=== PATIENT | female | born 2000 | race African-American/Black ===

== ENCOUNTER 2021-09-21 14:05 | Emergency (ER) | payer OTHER ==
[~2021-09-21] VITALS: Ht 172.7 cm; Wt 85.0 kg
[2021-09-21 14:20] VITALS: BP 137/98
[2021-09-21 14:45] VITALS: BP 128/89
[2021-09-21 14:49] LABS: URINE BILIRUBIN - DIPSTICK NEGATIVE (NEGATIVE); URINE BLOOD DIPSTICK LARGE (NEGATIVE); URINE COLOR YELLOW; URINE GLUCOSE - DIPSTICK NEGATIVE (NEGATIVE); URINE KETONE NEGATIVE (NEGATIVE); URINE PH 5.5 (4.5-8.0); URINE PROTEIN - DIPSTICK 100 mg/dL (NEG-TRACE); URINE SPECIFIC GRAVITY >=1.030; URINE UROBILINOGEN - DIPSTICK 0.2 E.U./dL (0.2)
[2021-09-21 14:50] LABS: URINE BACTERIA MANY hpf; URINE LEUK ESTERASE SMALL (NEGATIVE); URINE NITRITE - DIPSTICK POSITIVE (Negative); URINE RBC 25-50 RBC/hpf (0-5); URINE SQUAMOUS EPITHELIAL CELL FEW EPI/hpf (0-FEW); URINE WBC 20-50 WBC/hpf (0-5)
[2021-09-21 14:52] LABS: HEMATOCRIT 36.4 % (37.0-47.0); MEAN CELL VOLUME 88.8 fL CALC (80.0-100.0); MEAN CORPUSCULAR HGB 29.3 pG CALC (26.0-32.0); NEUT# 3.7 thou/uL (2.00-7.15); RED BLOOD COUNT 4.1 mill/uL (4.20-5.60); RED CELL DISTRI WIDTH 14.4 % (11.5-15.5)
[2021-09-21 15:00] VITALS: BP 127/91
[2021-09-21 15:09] LABS: ALBUMIN 4.5 g/dL (3.2-5.0); ALKALINE PHOSPHATASE 47 u/l (38-126); ANION GAP 13 (6-22 (CALC)); BILIRUBIN, TOTAL 0.4 mg/dL (0.0-1.4); BUN 14 mg/dL (7-17); BUN/CREATININE RATIO 13 (12-20 (CALC)); CARBON DIOXIDE 23 mmol/l (22-30); CHLORIDE 108 mmol/l (95-108); CREATININE 1.1 mg/dL (0.5-1.0); GFR > 60 ML/MIN (>=60 (CALC)); GFR FOR AFR.AMER. > 60 ML/MIN (>=60 (CALC)); POTASSIUM 3.9 mmol/l (3.5-5.1); SGOT/AST 27 u/l (14-36); SODIUM 141 mmol/l (137-146); TOTAL PROTEIN 7.7 g/dL (6.3-8.2)
[2021-09-21 15:15] VITALS: BP 118/83
[2021-09-21 15:30] VITALS: BP 131/76
[2021-09-21] MEDS ORDERED: OMNI-PAC300 MG PO (15:37)
== END 2021-09-21 15:56 | disposition home or self-care (01) | DRG 690 ==
LOC: ED 14:05
PROVIDERS: Family Medicine
DX: N39.0 Urinary tract infection, site not specified (principal); B96.20 Unspecified Escherichia coli [E. coli] as the cause of diseases classified elsewhere

== ENCOUNTER 2023-12-09 10:39 | Emergency (ER) | payer OTHER ==
[2023-12-09] VITALS (22 sets, daily range): BP systolic 120–164; BP diastolic 77–110
[~2023-12-09] VITALS: Ht 172.7 cm; Wt 132.0 kg
[~2023-12-09 10:39] MED LIST: OMNI-PAC300 MG PO
[2023-12-09] MEDS ORDERED: MOUNJARO12.5 MG SC (11:02)
[2023-12-09] MEDS ORDERED: KETOROLAC TROMETHAMINE 30 MG/ML SDV IV ONE (11:10)
[2023-12-09] MEDS ORDERED: SODIUM CHLORIDE 0.9% 1,000 ML IV ONE (11:10)
[2023-12-09] MEDS ORDERED: ONDANSETRON HCl 4 MG/2 ML SDV IV ONE (11:10)
[2023-12-09 11:48] LABS: URINE BILIRUBIN - DIPSTICK Negative (NEGATIVE); URINE BLOOD DIPSTICK Negative (NEGATIVE); URINE COLOR Yellow; URINE GLUCOSE - DIPSTICK Negative (NEGATIVE); URINE KETONE Negative (NEGATIVE); URINE LEUK ESTERASE Negative (NEGATIVE); URINE NITRITE - DIPSTICK Negative (Negative); URINE PH 5.5 (4.5-8.0); URINE PROTEIN - DIPSTICK Negative (NEG-TRACE); URINE SPECIFIC GRAVITY 1.025
[2023-12-09 12:33] LABS: BASO% 0.3 % (0-3); HEMATOCRIT 35.5 % (37.0-47.0); HEMOGLOBIN 11.7 g/dl (12.0-16.0); IMMATURE GRANULOCYTES 0.3 % (0.0-5.0); LYMPH% 48.9 % (15-41); MEAN CELL VOLUME 86.8 fL CALC (80.0-100.0); MEAN CORPUSCULAR HGB 28.6 pG CALC (26.0-32.0); MONO% 9.9 % (2-13); NEUT# 1.44 thou/uL (2.00-7.15); NEUT% 40.6 % (42-76); RED BLOOD COUNT 4.09 mill/uL (4.20-5.60); RED CELL DISTRI WIDTH 15.1 % (11.5-15.5)
[2023-12-09 12:49] LABS: ALBUMIN 4.4 g/dL (3.2-5.0); BILIRUBIN, TOTAL 0.5 mg/dL (0.02-1.3); CREATININE 0.9 mg/dL (0.5-1.0); POTASSIUM 4.4 mmol/l (3.5-5.1); TOTAL PROTEIN 7.4 g/dL (6.3-8.2)
[2023-12-09] MEDS ORDERED: ZOFRAN4 MG/TAB PO (14:46)
[2023-12-09] MEDS ORDERED: TRAMADOL HYDROC50 M1 PO (14:46)
[2023-12-09] MEDS ORDERED: NAPROXEN500 MG PO (14:46)
[2023-12-09] MEDS ORDERED: MORPHINE SULFATE 4 MG/ML VIAL IV ONE (15:05)
[2023-12-09] MEDS ORDERED: DiphenhydrAMINE HCL 50 MG/ML SDV IV ONE (15:25)
[2023-12-09] MEDS ORDERED: methylPREDNISolone SODIUM SUCC 125 MG/2 ML SDV IV ONE (15:25)
[2023-12-09] MEDS ORDERED: EPINEPHrine HCL 1 MG/ML AMP IM ONE (15:25)
[2023-12-09] MEDS ORDERED: FAMOTIDINE 10MG/ML 2ML SDV IV ONE (15:25)
== END 2023-12-09 17:16 | disposition home or self-care (01) | DRG 392 ==
LOC: ED 10:39
PROVIDERS: Family Medicine
DX: R10.31 Right lower quadrant pain (principal); R10.2 Pelvic and perineal pain; L29.9 Pruritus, unspecified; T40.2X5A Adverse effect of other opioids, initial encounter
CPT/HCPCS: Q9967

== ENCOUNTER 2024-05-20 17:43 | Emergency (ER) | payer OTHER ==
[~2024-05-20] VITALS: Ht 172.7 cm; Wt 112.0 kg
[~2024-05-20 17:43] MED LIST changes: +MOUNJARO12.5 MG SC; +NAPROXEN500 MG PO; +TRAMADOL HYDROC50 M1 PO; +ZOFRAN4 MG/TAB PO
[2024-05-20 18:35] VITALS: BP 138/92
== END 2024-05-20 18:31 | disposition left against medical advice (07) | DRG 951 ==
LOC: ED 17:43 → LWOBS 18:31
DX: Z53.21 Procedure and treatment not carried out due to patient leaving prior to being seen by health care provider (principal)